=== PATIENT | female | born 2000 | race Caucasian/White ===

== ENCOUNTER 2024-05-28 19:00 | Emergency (ER) | payer SELFPAY ==
[2024-05-28 19:04] VITALS: BP 137/85
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
== END 2024-05-28 22:09 | disposition home or self-care (01) ==
LOC: EMR 19:00
PROVIDERS: EMERGENCY PHYSICIAN Emergency Medicine; FAMILY PHYSICIAN Nurse Practitioner Family
DX: S52.591A Other fractures of lower end of right radius, initial encounter for closed fracture (principal); V43.52XA Car driver injured in collision with other type car in traffic accident, initial encounter
CPT/HCPCS: 29125; 99283; 73110